=== PATIENT | female | born 1945 | race Caucasian/White ===

== ENCOUNTER → 2017-01-19 | Outpatient (CLI) | payer OTHER ==
[~2017-01-19] MED LIST: ALLEGRA180 MG PO; ASPERDRINK81 MG PO; ASPIRIN81 M1 PO; ASPIRIN81 M2 PO; LORTAB 10/500 T1 TAB PO; NABUMETONE500 M1 PO; PERCOCET5/325; PRAVACHOL20 MG PO; PRAVASTATIN SOD40 MG PO; PRILOSEC20 MG PO; VESICARE5 MG PO; VICODIN 5/500 T1 TAB PO; VOLTAREN75 MG PO; [UNRECOGNIZED DRUG - OTHER]
--- NOTE | ~2017-01-19 | MY11 ---
[facility] A Service of [facility] RADIOLOGY TEXT RESULTS PATIENT: ANNA WEST LOCATION: [facility] : 49 UNIT #: [id number] AGE: [address]: Omar Sanders MD SEX: F ORDER DR: [id number] [facility] [address] [place], [place] [address] [id number] O MR#: [id number] Acc #: [id number] NAME: ANNA WEST : 1945 SEX: F STUDY DATE/TIME: 01/19/2017 10:02 UNIT: [facility] ROOM: STUDY DESCRIPTION: MY Mammogram Screening Dig Noman Attending Physician: Omar Sanders M.D. Ordering Physician: Omar Sanders M.D. Primary Care Physician: Omar Sanders M.D. MEDICAL IMAGING REPORT This report is preliminary unless electronic signature is present EXAM Digital screening mammogram 01/19/2017. [facility] HISTORY 71-year-old woman previous left breast surgery with history of phyllodes tumor, 2010. FINDINGS 0 Digital imaging of each breast was completed utilizing screening protocol. Surgical marker was placed left breast. Review includes FDA-approved CAD device. Breast parenchyma is partially fatty replaced. Scattered residual fibroglandular opacities in each breast are stable. Postsurgical distortion with some associated skin retraction superior areolar margin is again noted on the left. There is no interval occurring mass. There are no suspicious microcalcifications and no architectural deformity. IMPRESSION Negative mammogram with stable post surgical findings left breast. Annual screening recommended. Patients over the age of 40 are entered into a reminder system with target due date for the next mammogram. A result letter will also be sent to the patient. BIRADS: 1 - negative Dictated by... Blas Cook M.D. THIS IS AN ELECTRONICALLY VERIFIED REPORT [facility] A Service of [facility] & [facility] RADIOLOGY TEXT RESULTS PATIENT: ANNA WEST LOCATION: [facility] : 49 UNIT #: [id number] AGE: [address]: Omar Sanders MD SEX: F ORDER DR: Blas Cook M.D. at 01/19/2017 12:39 PM GUERRERO/homa TD: 01/19/2017 11:04 JOB #: [id number] MEDICAL IMAGING REPORT Page 1 of 1 COPY
== END | disposition home or self-care (01) ==
LOC: CWCC 09:26
DX: Z12.31 Encounter for screening mammogram for malignant neoplasm of breast (principal); Z87.898 Personal history of other specified conditions; Z98.890 Other specified postprocedural states
CPT/HCPCS: G0202